=== PATIENT | male | born 1950 | race Caucasian/White ===

== ENCOUNTER 2021-03-14 12:13 | Observation (INO) | payer MEDICARE, SELFPAY ==
[2021-03-14] VITALS (9 sets, daily range): BP systolic 100–121; BP diastolic 61–82; PULSE 65–84; RESP 16–20; TEMP 36.1–36.3; O2SAT 97–100; BMI 31.4
--- NOTE | ~2021-03-14 | CT_ITS ---
EXAMINATION: CT abdomen pelvis w con DATE: 03/14/2021 13:54 INDICATION: Abdominal pain TECHNIQUE: Computed tomography (CT) of the abdomen and pelvis was performed with 100 mL Omnipaque-350 intravenous contrast. Automated exposure control and iterative reconstruction technique were employe d. The dose-length product was 1171.82 mGy-cm. COMPARISON: None FINDINGS: Fine reticulonodular pattern at the bilateral lung bases with many of the nodules demonstrating high attenuation could represent either calcification in the setting of old granulomatous disease or poten tially aspirated barium. There is also mild bibasilar bronchiectasis. Heart size is normal. No perica rdial or pleural effusion. Atherosclerotic coronary artery catheter location. Aortic valve calcificat ion. Cholecystectomy clips the gallbladder fossa. Liver, spleen, pancreas, bilateral adrenal glands a nd kidneys are normal. Extensive scattered colonic diverticulosis. There is wall thickening and mild inflammatory stranding at the proximal sigmoid colon consistent with mild diverticulitis. No abscess or free intraperitoneal gas or fluid. Small bowel and appendix are normal. Diffuse mild bladder wall thickening with a diverticulum at the left side of the bladder likely related to chronic outlet obstr uction from the enlarged prostate. Small fat-containing left inguinal hernia. No pathologically enlar ged abdominal or pelvic lymphadenopathy. There is calcified atherosclerosis of the aorta and many of the other arteries. Moderate bilateral lower lumbar facet osteoarthritis. Otherwise mild scattered d egenerative skeletal changes.. IMPRESSION: 1. Radiograph. Uncomplicated sigmoid diverticulitis. 2. Mild bronchiectasis and fine reticulonodular pattern at the bilateral lung bases with numerous tin y dense nodules which could represent other sequela of old granulomatous disease or potentially aspir ated barium. 3. Diffuse mild bladder wall thickening and left sided bladder diverticulum likely related to chronic outlet obstruction from the enlarged prostate. Reviewed, dictated and finalized at location A. IMPRESSION: 1. Radiograph. Uncomplicated sigmoid diverticulitis. 2. Mild bronchiectasis and fine reticulonodular pattern at the bilateral lung b ases with numerous tiny dense nodules which could represent other sequela of ol d granulomatous disease or potentially aspirated barium. 3. Diffuse mild bladder wall thickening and left sided bladder diverticulum lik stephen related to chronic outlet obstruction from the enlarged prostate.
[2021-03-14 12:42] LABS: Basophils Absolute Auto 0.1 K/mm3 (0.0-0.1); Basophils Percent Auto 0.6 % (0.2-1.2); Eosinophils Absolute Auto 0.2 K/mm3 (0-0.3); Eosinophils Percent Auto 1.5 % (0-4.4); Hemoglobin 14.8 g/dL (14.0-18.0); Immature Granulocyte Absolute 0.04 K/mm3 (0.00-0.031); Immature Granulocyte Percent A 0.4 % (0-0.5); Lymphocytes Absolute Auto 2.47 K/mm3 (0.9-3.2); Lymphocytes Percent Auto 23.2 % (18.3-44.2); Mean Corpuscular HGB Conc 33.6 g/dl (32-36); Mean Corpuscular Hemoglobin 30.4 pg (26-34); Mean Corpuscular Volume 90.3 fl (80-100); Mean Platelet Volume 9.9 fl (7.4-10.4); Monocytes Absolute Auto 0.9 K/mm3 (0.1-0.6); Monocytes Percent Auto 8.7 % (2.6-8.5); Neutrophils Percent Auto 65.6 % (45.5-73.1); Platelet Count Result 272 k/mm3 (150-375); Red Blood Count 4.87 M/mm3 (4.6-6.20); Red Cell Distribution Width 13.6 % (11.5-14.5); White Blood Count 10.6 K/mm3 (4.5-10.0)
[2021-03-14 12:52] LABS: Alanine Aminotransferase 33 U/L (4-50); Albumin Level 4.2 g/dL (3.5-5.1); Alkaline Phosphatase 75 U/L (38-126); Anion Gap 10 mmol/L (8-16); Aspartate Amino Transferase 32 U/L (17-59); Blood Urea Nitrogen 26 mg/dL (9-20); Calcium 9.3 mg/dL (8.4-10.2); Carbon Dioxide 21 mmol/L (22-30); Chloride 106 mmol/L (98-107); Estimated CRCL calculation 48 ml/min; Estimated Glomerular Filt Rate 60; Glucose 124 mg/dL (65-110); Potassium 4.9 mmol/L (3.4-5.0); Sodium 137 mmol/L (137-145)
[2021-03-14 12:53] LABS: INR 0.9; Prothrombin Time 12.4 Seconds (11.1-14.7)
[2021-03-14 12:54] LABS: Partial Thromboplastin Time 25.5 SECONDS (22.3-36.8)
[2021-03-14] MEDS: SODIUM CHLORIDE 0.9% IV 1,000 ML 1000 ML (12:54)
--- NOTE | 2021-03-14 13:38 | ED.GENADULT ---
HPI - General Adult General Chief complaint: GI Bleed Stated complaint: Syncopal, +blood in stool Time Seen by Provider: 03/14/21 12:48 Source: patient History of Present Illness HPI narrative: Patient is a 70 y/o male complaining rectal bleeding starting earlier today. He states that he had 5-10 episode of bleeding. There is no known alleviating or exacerbating factor. He has some lower abdominal pressure. He also felt dizzy and light-headed, but he did not pass out or fall. Related Data Home Medications Medication Instructions Recorded Confirmed aspirin [Adult Aspirin] 81 mg PO DAILY 03/14/21 03/14/21 Allergies Allergy/AdvReac Type Severity Reaction Status Date / Time No Known Allergies Allergy Verified 03/14/21 12:39 Review of Systems Constitutional: Constitutional: Denies chills, Denies fever(s), Denies headache(s) and Denies weakness Eyes: Eyes: Denies blurry vision ENT: Denies headache(s) and Denies neck pain Cardiovascular: Cardiovascular: Denies chest pain and Denies dyspnea Respiratory: Respiratory: Denies cough and Denies dyspnea Gastrointestinal: Gastrointestinal: Reports abdominal pain, Reports hematochezia, Denies diarrhea, Denies nausea and Denies vomiting Genitourinary: Genitourinary: Denies hematuria and Denies dysuria Musculoskeletal: Musculoskeletal: Denies back pain and Denies neck pain Neurologic: Denies headache(s) and Denies weakness [facility] Family History Family History Father Diabetes mellitus Mother Congestive heart failure Social History Social History Smoking status: Never smoker Second hand tobacco smoke exposure: No Alcohol intake: former Drinks per week: 15 Substance use: never Gender identity (if verbalized by the patient): Male Sexual Orientation (if Verbalized by the Patient): Straight or Heterosexual Spiritual care concerns: No Exam Const: General: no acute distress and well developed Orientation/consciousness: oriented to person, oriented to place, oriented to time and patient oriented x3 HENMT: Head: normocephalic Ears: external ears normal General nose exam: Normal external nose present Eyes: General: appearance normal, both eyes and all related structures Conjunctivae: conjunctivae normal Neck: Neck: normal visual inspection and full ROM Chest: Chest palpation & inspection: normal inspection of the chest and no tenderness Resp: Effort & Inspection: normal respiratory effort Auscultation: clear to auscultation bilaterally Cardio: Rate: regular rate Rhythm: regular rhythm GI: GI Palp: No abdominal tenderness and Yes Soft to palpation Skin: General skin exam: normal color and turgor normal Neuro: General: oriented to person, oriented to place, oriented to time and patient oriented x3 Cognition (Neuro): normal cognition Extrem: General: normal to inspection, full ROM and no pedal edema Psych: Appearance: grossly normal Mental Status: mental status grossly normal Affect: normal affect Course Consultations Consultation #1: Discussed with Dr. Rousseau, who agrees to admit. Date: 03/14/21 Time: 15:35 Vital Signs Vital signs: Vital Signs Pulse Rate 76 03/14/21 12:16 Respiratory Rate 18 03/14/21 12:16 Blood Pressure 106/82 03/14/21 12:16 Pulse Oximetry 99 03/14/21 12:16 Temperature 36.3 C L 03/14/21 17:13 Pulse Rate 65 03/14/21 17:13 Respiratory Rate 16 03/14/21 17:13 Blood Pressure 104/61 03/14/21 17:13 Pulse Oximetry 98 03/14/21 17:13 Medical Decision Making Vital Signs Vital Signs: Vital Signs Pulse Rate 76 03/14/21 12:16 Respiratory Rate 18 03/14/21 12:16 Blood Pressure 106/82 03/14/21 12:16 Pulse Oximetry 99 03/14/21 12:16 Temperature 36.3 C L 03/14/21 17:13 Pulse Rate 65 03/14/21 17:13 Respiratory Rate 16 03/14/21 17:13 Blood P
[2021-03-14 14:13] LABS: Hematocrit 37.8 % (42.0-52.0); Hemoglobin 12.7 g/dL (14.0-18.0)
[2021-03-14] MEDS: CIPROFLOXACIN 400 MG/D5W 200ML 200 ML 200 MG IVPB (15:35)
[2021-03-14 15:53] LABS: Add Urine Microscopic? YES; Appearance Urine Clear (Clear); Bacteria Urine Trace /hpf; Bilirubin Urine Negative (Negative); Color Urine Yellow (Yellow); Glucose Urine UA Negative (Negative); Ketones Urine Negative (Negative); Leukocyte Esterase Ur 3+ LEU/UL (Negative); Mucus Urine Rare /lpf; Nitrate Urine Positive (Negative); Protein Urine Negative (Negative); Squamous Epithelial Cell Urine Rare /hpf (Few); Urobilinogen Urine Negative mg/dL (<2.0); WBC Urine >75 /hpf
[2021-03-14 15:57] LABS: Blood Urine Negative (Negative); Specific Grav Ur 1.047 (1.001-1.035)
--- NOTE | 2021-03-14 17:07 | ADMGEN ---
This patient, Jayesh Jane, was admitted to Medical Room 243-01. Patient oriented to hospital policies and general routines including ID bracelet, bed and alarms, visiting hours, pain management, procedures, bathroom and other care routines, personal items, smoking policy, room service/diet, and visiting hours. Information on how to activate the Rapid Response Team has been discussed. Patient/Family are encouraged to report perceived risks to care and to ask questions if they do not understand what they are told or what they should do.
[2021-03-14] MEDS: metroNIDAZOLE 500 MG/ISO 100ML 500 MG/100 ML BAG 100 MG IVPB ×2 (17:47→23:33)
--- NOTE | 2021-03-14 18:25 | PM.IMHP ---
H&P: HPI History of Present Illness Date/Time: 03/14/21 18:25 Chief Complaint: bloody stools Narrative: Mr. Jayesh Jane is a 70 year old man with a past medical history significant for diverticulosis. has been admitted after presenting to the ED with complaints fo bloody stools since around 0700 this morning. He is from [place], and is in the area working. He tells me he ate turkey sandwich on bread with a lot of seeds. He tells me he has not had an episode of diverticulitis in more than 10 years; at that time he also had a colonoscopy. He dose endorse associated nausea, abdominal pain and dizziness. He also takes an aspirin daily. During interview and exam he denied any fever, chills, RIBEIRO, SOB, CP, palpitations. In the ED WBC was 10.6; H/H 12.7/37.8. CT of the A/P uncomplicated sigmoid diverticulitis. IVF and IV antibiotics were initiated. He has been admitted to observation status for further evaluation and treatment. Review of Systems Review of Systems: All systems reviewed & are unremarkable except as noted in HPI and below PMFSH Family History Family History Father Diabetes mellitus Mother Congestive heart failure Social History Social History Smoking status: Never smoker Second hand tobacco smoke exposure: No Alcohol intake: former Drinks per week: 15 Substance use: never Gender identity (if verbalized by the patient): Male Sexual Orientation (if Verbalized by the Patient): Straight or Heterosexual Spiritual care concerns: No Meds Home Medications and Allergies Home Medications Medication Instructions Recorded Confirmed Type aspirin [Adult Aspirin] 81 mg PO DAILY 03/14/21 03/14/21 History Allergies Allergy/AdvReac Type Severity Reaction Status Date / Time No Known Allergies Allergy Verified 03/14/21 12:39 Vital Signs Vital Signs - 24 hr 03/14/21 12:16 03/14/21 12:37 03/14/21 14:46 Temperature Pulse Rate 76 84 71 Respiratory Rate 18 20 20 Blood Pressure 106/82 100/71 121/78 Pulse Oximetry 99 97 99 03/14/21 15:03 03/14/21 15:39 03/14/21 16:03 Temperature Pulse Rate 67 67 70 Respiratory Rate 20 20 20 Blood Pressure 118/82 121/76 116/71 Pulse Oximetry 100 97 99 03/14/21 16:50 03/14/21 17:13 Temperature 36.3 C L Pulse Rate 70 65 Respiratory Rate 20 16 Blood Pressure 116/71 104/61 Pulse Oximetry 99 98 H&P: Results Labs Labs: Short CBC 03/14/21 03/14/21 Range/Units 12:35 14:04 WBC 10.6 H (4.5-10.0) K/mm3 Hgb 14.8 12.7 L (14.0-18.0) g/dL Hct 44.0 37.8 L (42.0-52.0) % Plt Count 272 (150-375) k/mm3 BMP 03/14/21 12:35 Sodium 137 Potassium 4.9 Chloride 106 Carbon Dioxide 21 L BUN 26 H Creatinine 1.20 Glucose 124 H Calcium 9.3 Liver Function 03/14/21 Range/Units 12:35 Total Bilirubin 1.0 (0.2-1.3) mg/dL AST 32 (17-59) U/L ALT 33 (4-50) U/L Alkaline Phosphatase 75 (38-126) U/L Albumin 4.2 (3.5-5.1) g/dL Urine 03/14/21 Range/Units 15:37 Urine Color Yellow (Yellow) Urine Appearance Clear (Clear) Urine pH 6.0 (5.0-9.0) Ur Specific Rowan 1.047 H (1.001-1.035) Urine Protein Negative (Negative) mg/dL Urine Glucose (UA) Negative (Negative) mg/dL Assessment and Plan Assessment and plan (1) Diverticulitis: Code(s): K57.92 - Diverticulitis of intestine, part unspecified, without perforation or abscess without bleeding Status: Acute Assessment and Plan: IVF Continue with IV ciprofloxacin and metronidazole Pain management Antiemetics Consider GI consult Supportive care (2) Lower GI bleed: Code(s): K92.2 - Gastrointestinal hemorrhage, unspecified Status: Acute Assessment and Plan: Hgb 12.7 Hold ASA Check hgb q6 hr Will check occult stool Last colonoscopy >10 years ago Consider GI
[2021-03-14 19:40] LABS: Hematocrit 38.7 % (42.0-52.0); Hemoglobin 12.9 g/dL (14.0-18.0)
[2021-03-14] MEDS: METOCLOPRAMIDE HCL INJ 10 MG/2 ML VIAL IV PUSH (23:33)
[2021-03-15] MEDS: CIPROFLOXACIN 400 MG/D5W 200ML 200 ML 200 MG IVPB ×2 (01:13→14:23)
[2021-03-15 04:00] VITALS: BP 105/65; PULSE 63; RESP 16; TEMP 36.3; O2SAT 98
[2021-03-15 04:12] LABS: IFOB Positive Control Positive; Immunochemical Fecal Occult Bl Positive (N)
[2021-03-15 06:19] LABS: Basophils Percent Auto 0.3 % (0.2-1.2); Eosinophils Absolute Auto 0.2 K/mm3 (0-0.3); Eosinophils Percent Auto 2.5 % (0-4.4); Hematocrit 37.3 % (42.0-52.0); Hemoglobin 12.3 g/dL (14.0-18.0); Immature Granulocyte Absolute 0.02 K/mm3 (0.00-0.031); Immature Granulocyte Percent A 0.3 % (0-0.5); Lymphocytes Absolute Auto 1.32 K/mm3 (0.9-3.2); Lymphocytes Percent Auto 21.6 % (18.3-44.2); Mean Corpuscular Hemoglobin 30.7 pg (26-34); Mean Platelet Volume 10.2 fl (7.4-10.4); Monocytes Absolute Auto 0.5 K/mm3 (0.1-0.6); Monocytes Percent Auto 8.8 % (2.6-8.5); Neutrophils Absolute Auto 4.1 K/mm3 (1.3-6.7); Neutrophils Percent Auto 66.5 % (45.5-73.1); Platelet Count Result 184 k/mm3 (150-375); Red Blood Count 4.01 M/mm3 (4.6-6.20); Red Cell Distribution Width 13.9 % (11.5-14.5); White Blood Count 6.1 K/mm3 (4.5-10.0)
[2021-03-15] MEDS: metroNIDAZOLE 500 MG/ISO 100ML 500 MG/100 ML BAG 100 MG IVPB ×3 (06:41→21:54)
[2021-03-15] MEDS: METOCLOPRAMIDE HCL INJ 10 MG/2 ML VIAL IV PUSH ×4 (06:48→23:18)
[2021-03-15] MEDS: ASPIRIN 81 MG CHEWABLE TABLET PO (09:37)
--- NOTE | 2021-03-15 11:57 | PM.IMPN ---
Progress Note: A&P Assessment and Plan (1) Diverticulitis: Code(s): K57.92 - Diverticulitis of intestine, part unspecified, without perforation or abscess without bleeding Status: Acute Assessment and Plan: Presented with rectal bleeding. CT abdomen/ pelvis showed uncomplicated sigmoid diverticulitis Continue with IV ciprofloxacin and IV Flagyl Supportive care to include analgesics and antiemetics as needed of Low-fiber diet He has history of diverticulitis >10 y ago and is established with GI in [place]. He is due for a colonoscopy and will need to have this arranged upon discharge. He noted that for 1 week he was eating bread with nuts and seeds daily. 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 (2) Lower GI bleed: Code(s): K92.2 - Gastrointestinal hemorrhage, unspecified Status: Acute Assessment and Plan: Resolved. Presented with 5-10 episodes of bright red rectal bleeding likely secondary to diverticulitis. Fecal occult blood test positive aspirin on hold slight decline in H&H from presentation but remaining stable. Last hemoglobin 12.3. Recheck H&H this evening to ensure remaining stable no further episodes of bleeding. Vital signs are stable and there is no evidence of ongoing blood loss. (3) Syncope, near: Code(s): R55 - Syncope and collapse Status: Acute Assessment and Plan: Presyncope likely related to acute illness and dehydration he has been rehydrated with IV fluids and is euvolemic on my exam no dizziness or lightheadedness. blood pressure is on the low end of normal and remaining stable continue to encourage oral fluid intake (4) Abnormal urinalysis: Code(s): R82.90 - Unspecified abnormal findings in urine Status: Acute Assessment and Plan: UA grossly abnormal concerning for UTI findings of diffuse bladder wall thickening on CT he is asymptomatic will await results of urine culture. he remains on Cipro for diverticulitis will check bladder scan to ensure no urinary retention Subjective Date/time seen: 03/15/21 11:57 Interval history: date of service: 03/15/2021 Jayesh Jane is a 70-year-old male with history of diverticulitis many years ago, hypertension, hyperlipidemia who is seen in follow-up for sigmoid diverticulitis. he is feeling better today. He has had 2 formed bowel movements today with no episodes of blood in his stools. He is tolerating his diet. He denies nausea, vomiting, fever, or chills. He denies melena or hematochezia. Denies urinary symptoms including dysuria, hematuria, urgency, or frequency. He does endorse neuropathy of his lower extremities. Denies headache or body aches. denies dizziness or lightheadedness. He is able to ambulate to the restroom independently without difficulty. He is wanting to go home. He lives in [place] and is in the area currently for work, and will have to drive back to [place] from here upon discharge Review of Systems Review of Systems: All systems reviewed & are unremarkable except as noted in HPI and below Exam Narrative: Mr. Jane is a well-nourished, well-appearing 70-year-old male who is lying supine in bed. he appears comfortable and is in NARD. Neuro: awake, alert and oriented x4, speech clear, no focal neuro deficits noted HEENMT: normocephalic, atraumatic, EOMI, sclerae anicteric, moist oral mucosa Neck: supple, no lymphadenopathy Respiratory: clear to auscultation bilaterally, nonlabored breathing Cardio: regular rate, regular rhythm with S1-S2 Abdomen: protuberant, normoactive bowel sounds, soft, nontender to palpation, no rigidity or guarding Extremities: no edema, erythema, or tenderness to palpation, DP pulses 2+ bilaterally Skin: no rashes or lesions, warm and dry Psych: appropriate mood and affect, judgment and
[2021-03-15 14:00] VITALS: BP 126/65; PULSE 62; RESP 16; TEMP 36.3; O2SAT 97
[2021-03-15 18:45] LABS: Hematocrit 37.4 % (42.0-52.0); Hemoglobin 12.4 g/dL (14.0-18.0)
[2021-03-15 21:21] VITALS: BP 118/72; PULSE 60; RESP 14; TEMP 36.5; O2SAT 97
[2021-03-15] MEDS: PRAVASTATIN SODIUM 20 MG TABLET PO (21:54)
[2021-03-15] MEDS: ZOLPIDEM TARTRATE (*CRX) 5 MG TABLET 10 MG PO (22:24)
[2021-03-16] MEDS: CIPROFLOXACIN 400 MG/D5W 200ML 200 ML 200 MG IVPB (02:22)
[2021-03-16 04:00] VITALS: BP 123/75; PULSE 57; RESP 16; TEMP 36.6; O2SAT 96
[2021-03-16] MEDS: METOCLOPRAMIDE HCL INJ 10 MG/2 ML VIAL IV PUSH (05:59)
[2021-03-16] MEDS: metroNIDAZOLE 500 MG/ISO 100ML 500 MG/100 ML BAG 100 MG IVPB (05:59)
[2021-03-16 06:05] LABS: Hematocrit 35.8 % (42.0-52.0)
[2021-03-16 06:21] LABS: Anion Gap 6 mmol/L (8-16); Blood Urea Nitrogen 14 mg/dL (9-20); Calcium 8.8 mg/dL (8.4-10.2); Carbon Dioxide 27 mmol/L (22-30); Chloride 105 mmol/L (98-107); Estimated CRCL calculation 79 ml/min; Estimated Glomerular Filt Rate > 60; Glucose 97 mg/dL (65-110); Potassium 4.3 mmol/L (3.4-5.0); Sodium 138 mmol/L (137-145)
--- NOTE | 2021-03-16 08:07 | PM.DS ---
DS: Admitting Diagnosis Admitting Diagnosis acute uncomplicated diverticulitis DS: Discharge Diagnosis Discharge Diagnosis (1) Diverticulitis: Code(s): K57.92 - Diverticulitis of intestine, part unspecified, without perforation or abscess without bleeding Status: Acute Assessment and Plan: Presented with rectal bleeding. CT abdomen/ pelvis showed uncomplicated sigmoid diverticulitis Started on IV ciprofloxacin and IV Flagyl. Will continue PO Levaquin and Flagyl to complete 7 days of antibiotic therapy. Able to tolerate low-fiber diet He has history of diverticulitis >10 y ago and is established with GI in [place]. He is due for a colonoscopy and will need to have this arranged upon discharge. He noted that for 1 week he was eating bread with nuts and seeds daily. 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 (2) Lower GI bleed: Code(s): K92.2 - Gastrointestinal hemorrhage, unspecified Status: Acute Assessment and Plan: Resolved. Presented with 5-10 episodes of bright red rectal bleeding Likely secondary to diverticulitis. Fecal occult blood test positive Slight decline in H&H from presentation but remained stable around 12.0 Rectal bleeding resolved. Anticipate H&H to return to baseline. vital signs remained stable with no evidence of ongoing blood loss Aspirin initially held was continued upon discharge given resolution of bleeding (3) Syncope, near: Code(s): R55 - Syncope and collapse Status: Acute Assessment and Plan: Presyncope likely related to acute illness and dehydration. He was rehydrated with IV fluids and was euvolemic on my exam. he was asymptomatic. Blood pressure was stable. Encouraged continued oral fluid intake. (4) Abnormal urinalysis: Code(s): R82.90 - Unspecified abnormal findings in urine Status: Acute Assessment and Plan: UA grossly abnormal concerning for UTI, though he was asymptomatic. Urine culture with growth of coag-negative Staphylococcus. felt to be contaminant. No treatment initiated as he was asymptomatic. DS: Summary Hospital Course Hospital Course: Date of admission: 03/14/2021 Date of discharge: 03/16/2021 Jayesh Jane is a 70-year-old male with history of diverticulitis many years ago, hypertension, hyperlipidemia who presented to the emergency department on 03/14/2021 with complaints of 5-10 episodes of rectal bleeding with associated dizziness and lightheadedness. Upon presentation to the emergency department, his vital signs were stable, he was afebrile, hemoglobin 12.7, hematocrit 37.8, electrolytes stable, UA abnormal, and CT abdomen/pelvis showed uncomplicated sigmoid diverticulitis. he was admitted to the hospitalist service for further evaluation and management. Please see above for further details. He was treated with IV antibiotics and will continue p.o. antibiotics to complete a full course as an outpatient. He will need to follow-up with his PCP and retail office manager to arrange colonoscopy. He was feeling much better and was very eager for discharge home. He was traveling here for work. He plans to try half way to home in [place] and stop to rest than drive the other half the following day. We discussed worrisome signs and symptoms for which to return and he was educated on his medications. We discussed worrisome signs and symptoms for which to return and he was educated on his medications. Status at Discharge Functional status at discharge: independent ambulation Overall status at discharge: patient is back to baseline Time Spent with Patient Time attestation: Total time spent providing and/or coordinating discharge services: 45 minutes Time spent: Greater than 30 minutes Exam Narrative: Mr. Jane is a well-nourished, well-appearing 70-year-old male who is walking around his room. he
== END 2021-03-16 08:27 | disposition home or self-care (01) ==
LOC: ANHED 13:19 → ANH2MED 16:21
PROVIDERS: Nurse Practitioner Adult Health; Physician Assistant; Admitting Provider Hospitalist; Emergency Provider Emergency Medicine; Visit Provider Internal Medicine
DX: K57.92 Diverticulitis of intestine, part unspecified, without perforation or abscess without bleeding (principal); K92.1 Melena; R55 Syncope and collapse; I10 Essential (primary) hypertension; E78.5 Hyperlipidemia, unspecified; R82.90 Unspecified abnormal findings in urine
CPT/HCPCS: 36415; 74177; 80048; 80053; 81001; 82274; 85014; 85018; 85025; 85610; 85730; 86850; 86880; 86900; 86901; 86902; 87086; 87147; 87181; 87186; 96361; 96365; 96366; 96375; 96376; 99285; A9270; G0378; J0744; J2765; J7030; Q9967